=== PATIENT | female | born 2000 | race Caucasian/White ===

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

== ENCOUNTER 2022-03-22 18:45 | Outpatient (REF) | payer SELFPAY ==
[2022-03-24 12:06] LABS: COVID-19 RT-PCR UVMMC Result Negative (Negative)
== END 2022-03-22 18:46 | disposition home or self-care (01) ==
LOC: LBN 18:45
PROVIDERS: PCP Nurse Practitioner Pediatrics; Visit Provider Student in an Organized Health Care Education/Training Program
DX: Z20.822 Contact with and (suspected) exposure to COVID-19 (principal)
CPT/HCPCS: U0003

== ENCOUNTER 2023-01-02 03:24 | Outpatient (CLI) | payer SELFPAY ==
[2023-01-02 11:39] LABS: TSH (W/Ref FT4) 1.52 uIU/mL (0.36-3.74)
[2023-01-02 18:55] LABS: Prolactin 8.9 ng/mL (See Note)
[2023-01-02 18:58] LABS: FSH 4.6 mIU/mL (See Note)
== END 2023-01-02 03:25 | disposition home or self-care (01) ==
PROVIDERS: PCP Nurse Practitioner Pediatrics; Visit Provider Nurse Practitioner Women's Health
DX: N91.2 Amenorrhea, unspecified (principal)
CPT/HCPCS: 36415; 83001; 84146; 84443

== ENCOUNTER 2023-07-22 14:19 | Outpatient (REF) | payer SELFPAY | END 2023-07-22 14:20 | disposition home or self-care (01) | LOC: LBN 14:19 | PROVIDERS: PCP Student in an Organized Health Care Education/Training Program; Visit Provider Nurse Practitioner Women's Health | DX: R30.0 Dysuria (principal) | CPT/HCPCS: 87077; 87086; 87186 ==

== ENCOUNTER 2024-02-16 08:38 | Outpatient (REF) | payer SELFPAY ==
--- NOTE | 2024-02-16 08:30 | PAPFT_PTH ---
PATIENT: Lul Quinn LOC: [facility] U#:[id number] AGE/SX: 23/F ROOM: RE02/16/[address]: Erika Chandler NP : 2000 BED: DIS: 02/16/2024 SPEC #: [id number] RECD: 02/16/24 13:01 STATUS: ISIS REAnastasiya #: [id number] RONA: 02/16/24 08:[address]: Erika Chandler NP DEPT: [facility] Cytology RECD BY: Siomara Aquino ENTERED: 02/16/24 13:02 SP TYPE: PAPFT OTHR DR: Mariah Cook MD Tissues: 1 - CX/ENDOCX FOR PAP SMEARS Procedures: PAP THIN PREP/[facility] Screening Comments: [id number]
== END 2024-02-16 08:39 | disposition home or self-care (01) ==
LOC: LBN 08:38
PROVIDERS: PCP Student in an Organized Health Care Education/Training Program; Visit Provider Nurse Practitioner Women's Health
DX: N76.0 Acute vaginitis (principal)
CPT/HCPCS: 88142; 87480; 87510; 87660